=== PATIENT | male | born 2000 | race African-American/Black ===

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

== ENCOUNTER 2018-01-07 16:28 | Emergency (ER) | payer SELFPAY ==
[2018-01-07 16:37] VITALS: BP 141/86
[2018-01-07] MEDS ORDERED: Ondansetron ODT TAB* 4 MG SL ONE (16:51)
--- NOTE | 2018-01-07 17:42 | UC ---
General HPI - HPI Summary HPI Summary: 18 yo BM p/w needing a work note to go back to work. Got scared due to spitting/ vomiting up ASA and ibuprofen(within 5 minutes of ingesting 7-8hrs ago when boss gave him some OTC analgesics due to having some cold sx. Wanted to see if he is ok and not having an acute allergic reaction and would like a work note that he is OK to go back to work. - History of Current Complaint Chief Complaint: UCGI Stated Complaint: VOMITING Time Seen by Provider: 01/07/18 16:52 Hx Obtained From: Patient Hx From Patient Unobtainable Due To: Other Onset/Duration: Sudden Onset Pain Intensity: 0 - Allergy/Home Medications Allergies/Adverse Reactions: Allergies Allergy/AdvReac Type Severity Reaction Status Date / Time aspirin Allergy Swelling Verified 01/07/18 16:37 Of Face,Lips,& Throat ibuprofen Allergy Swelling Verified 01/07/18 16:37 Of Face,Lips,& Throat Home Medications: Home Medications NK [No Home Medications Reported] 01/07/18 [History Confirmed 01/07/18] PMH/Surg Hx/FS Hx/Imm Hx Previously Healthy: Yes - Surgical History Surgical History: None - Family History Known Family History: Positive: Cardiac Disease, Hypertension, Diabetes - Social History Alcohol Use: Rare Substance Use Type: None Smoking Status (MU): Never Smoked Tobacco Household Exposure Type: Cigarettes - Immunization History Most Recent Influenza Vaccination: Not UTD Vaccination Up to Date: Yes Review of Systems Constitutional: Negative Skin: Negative Eyes: Negative ENT: Negative Respiratory: Negative Cardiovascular: Negative Gastrointestinal: Vomiting, Nausea Genitourinary: Negative Motor: Negative Neurovascular: Negative Musculoskeletal: Negative Neurological: Negative Psychological: Negative All Other Systems Reviewed And Are Negative: Yes Physical Exam Triage Information Reviewed: Yes Appearance: Well-Appearing Vital Signs: Initial Vital Signs Temp 36.7 C 01/07/18 16:34 Pulse 56 01/07/18 16:34 Resp 12 01/07/18 16:34 BP 141/86 01/07/18 16:34 Pulse Ox 98 01/07/18 16:34 Eye Exam: Normal ENT Exam: Normal, Other - NO ENT: Positive: Pharynx normal, TMs normal, Uvula midline. Negative: Hoarse voice Dental Exam: Normal Neck exam: Normal Neck: Positive: 1 Respiratory Exam: Normal Cardiovascular Exam: Normal Abdominal Exam: Normal Musculoskeletal Exam: Normal Neurological Exam: Normal Psychological Exam: Normal Skin Exam: Normal Course/Dx - Course Course Of Treatment: Ingested allergic material 7-8 hrs ago but did not give it enough time to absorb into GI system. No evidence of anaphylaxis, urticaria or bronchospasm or acute ilness. May go back to work - Differential Dx - Multi-Symptom Provider Diagnoses: Emesis Discharge - Discharge Plan Condition: Stable Disposition: HOME Patient Education Materials: General Allergic Reaction (ED) Forms: *Work Release Referrals: Emilio Mendoza MD [Primary Care Provider] - Additional Instructions: NO Aspirin, ibuprofen, Advil or Aleve or its derivative medications
== END 2018-01-07 17:40 | disposition home or self-care (01) ==
LOC: UCEAST 16:28
DX: R11.10 Vomiting, unspecified (principal); Z88.6 Allergy status to analgesic agent
CPT/HCPCS: 99211; G0463

== ENCOUNTER 2018-02-23 13:29 | Emergency (ER) | payer SELFPAY ==
[2018-02-23 14:35] VITALS: BP 125/75
[2018-02-23] MEDS ORDERED: Famotidine TAB* 20 MG PO ONE (14:52)
--- NOTE | 2018-02-23 14:52 | UC ---
Abdominal Pain Male HPI - HPI Summary HPI Summary: 18 y/o male with no pmh, no meds, working in dining at [employer], ate jalopeno pepper accidentally at work, + abdominal pain, vomited several minutes later, no shortness of breath, chest pain. mild abdominal pain. no other complaints , no rashes. - History of Current Complaint Chief Complaint: UCGI Stated Complaint: VOMITING Time Seen by Provider: 02/23/18 14:33 Hx Obtained From: Patient Onset/Duration: Sudden Onset, Lasting Hours Severity Initially: Mild Severity Currently: None Pain Intensity: 0 Pain Scale Used: 0-10 Numeric - Allergies/Home Medications Allergies/Adverse Reactions: Allergies Allergy/AdvReac Type Severity Reaction Status Date / Time aspirin Allergy Swelling Verified 02/23/18 14:34 Of Face,Lips,& Throat ibuprofen Allergy Swelling Verified 02/23/18 14:34 Of Face,Lips,& Throat PMH/Surg Hx/FS Hx/Imm Hx Previously Healthy: Yes - Surgical History Surgical History: None - Family History Known Family History: Positive: Cardiac Disease, Hypertension, Diabetes - Social History Alcohol Use: Rare Substance Use Type: None Smoking Status (MU): Smoker, Current Status Unknown Household Exposure Type: Cigarettes - Immunization History Most Recent Influenza Vaccination: Not UTD Vaccination Up to Date: Yes Review of Systems Gastrointestinal: Abdominal Pain - minimal Neurological: Negative Psychological: Negative Is Patient Immunocompromised?: No All Other Systems Reviewed And Are Negative: Yes Physical Exam Triage Information Reviewed: Yes Appearance: Well-Appearing, No Pain Distress, Well-Nourished Vital Signs: Initial Vital Signs Temp 98.1 F 02/23/18 14:32 Pulse 53 02/23/18 14:32 Resp 18 02/23/18 14:32 BP 125/75 02/23/18 14:32 Pulse Ox 99 02/23/18 14:32 Eyes: Positive: Conjunctiva Clear Respiratory: Positive: Chest non-tender, Lungs clear, Normal breath sounds, No respiratory distress, No accessory muscle use Cardiovascular: Positive: RRR, No Murmur Abdomen Description: Positive: Nontender, No Organomegaly, Soft Abd Pain Male Course/Dx - Course Course Of Treatment: increase fluid intake, carafate for stomach irritation, prescription given, return to work tomorrow - Differential Dx/Clinical Impression Provider Diagnoses: gastritis Discharge - Sign-Out/Discharge Documenting (check all that apply): Discharge/Admit/Transfer - Discharge Plan Condition: Good Disposition: HOME Prescriptions: Sucralfate [Carafate] 1 gm PO Q6HR PRN #10 tablet PRN Reason: indigestion, stomach pain Patient Education Materials: Gastritis (ED) Referrals: Emilio Mendoza MD [Primary Care Provider] - Additional Instructions: - Do not eat jalepenos - increase fluid intake - carafe for stomach indigestion - return to ER with shortness of breath, rashes, increased abdominal pain - Billing Disposition and Condition Condition: GOOD Disposition: HOME
== END 2018-02-23 15:05 | disposition home or self-care (01) ==
LOC: UCEAST 13:29
DX: K29.70 Gastritis, unspecified, without bleeding (principal); Z88.6 Allergy status to analgesic agent; Z72.0 Tobacco use
CPT/HCPCS: 99212; A9270-GY; G0463

== ENCOUNTER 2018-02-24 14:25 | Emergency (ER) | payer SELFPAY ==
[2018-02-24 14:36] VITALS: BP 125/65
--- NOTE | 2018-02-24 14:51 | UC ---
Abdominal Pain Male HPI - HPI Summary HPI Summary: 18 yo male requests note for work today Seen yesterday ate habreno pepper yesterday at work immediate burning /nausea and vomiting x 1 drank a lot of milk one episode of diarrhea today (states he is lactose intolerant) no fever minimal pain anorexia tolerating liquids well - History of Current Complaint Chief Complaint: UCGI Stated Complaint: ABDOMINAL PAIN AND DIARRHEA Time Seen by Provider: 02/24/18 14:33 Hx Obtained From: Patient Onset/Duration: Sudden Onset, Lasting Hours Severity Initially: Severe Severity Currently: Mild Pain Intensity: 1 Pain Scale Used: 0-10 Numeric Location: Epigastric Character: Burning, Cramping Aggravating Factor(s): Food Alleviating Factor(s): Rest Associated Signs And Symptoms: Positive: Nausea, Vomiting - once yesterday, Diarrhea - today - Allergies/Home Medications Allergies/Adverse Reactions: Allergies Allergy/AdvReac Type Severity Reaction Status Date / Time aspirin Allergy Swelling Verified 02/23/18 14:34 Of Face,Lips,& Throat ibuprofen Allergy Swelling Verified 02/23/18 14:34 Of Face,Lips,& Throat PMH/Surg Hx/FS Hx/Imm Hx Previously Healthy: Yes - Surgical History Surgical History: None - Family History Known Family History: Positive: Cardiac Disease, Hypertension, Diabetes - Social History Alcohol Use: Rare Substance Use Type: None Smoking Status (MU): Current Some Day Smoker Household Exposure Type: Cigarettes - Immunization History Most Recent Influenza Vaccination: Not UTD Vaccination Up to Date: Yes Review of Systems Gastrointestinal: Abdominal Pain - vague and mild, Vomiting - yesterday x 1, Diarrhea - today x1, Nausea Genitourinary: Negative Motor: Negative Neurovascular: Negative Musculoskeletal: Negative Neurological: Negative Psychological: Negative Is Patient Immunocompromised?: No All Other Systems Reviewed And Are Negative: Yes Physical Exam Triage Information Reviewed: Yes Appearance: Well-Appearing, No Pain Distress, Well-Nourished Vital Signs: Initial Vital Signs Temp 98 F 02/24/18 14:33 Pulse 57 02/24/18 14:33 Resp 15 02/24/18 14:33 BP 125/65 02/24/18 14:33 Pulse Ox 98 02/24/18 14:33 Vital Signs Reviewed: Yes Eyes: Positive: Conjunctiva Clear ENT: Positive: Hearing grossly normal. Negative: Nasal congestion, Nasal drainage, Tonsillar exudate, Trismus, Muffled voice, Hoarse voice Neck: Positive: Supple, Nontender, No Lymphadenopathy Respiratory: Positive: Lungs clear, Normal breath sounds, No respiratory distress Cardiovascular: Positive: RRR, No Murmur Abdomen Description: Positive: Nontender, No Organomegaly, Soft. Negative: CVA Tenderness (R), CVA Tenderness (L) Bowel Sounds: Positive: Present Musculoskeletal: Positive: ROM Intact, No Edema Neurological: Positive: Alert Psychological Exam: Normal Skin Exam: Normal Abd Pain Male Course/Dx - Differential Dx/Clinical Impression Provider Diagnoses: gastritis-resolving Discharge - Sign-Out/Discharge Documenting (check all that apply): Discharge/Admit/Transfer - Discharge Plan Condition: Stable Disposition: HOME Patient Education Materials: Gastritis (ED) Forms: *Work Release Referrals: Emilio Mendoza MD [Primary Care Provider] - If Needed Additional Instructions: recheck for new or worsening symptoms - Billing Disposition and Condition Condition: STABLE Disposition: HOME
== END 2018-02-24 14:52 | disposition home or self-care (01) ==
LOC: UCEAST 14:25
DX: K29.70 Gastritis, unspecified, without bleeding (principal); R11.2 Nausea with vomiting, unspecified; R19.7 Diarrhea, unspecified; Z88.6 Allergy status to analgesic agent; Z72.0 Tobacco use
CPT/HCPCS: 99211; G0463

== ENCOUNTER 2018-03-02 16:05 | Emergency (ER) | payer OTHER ==
[2018-03-02 18:59] VITALS: BP 136/98
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
== END 2018-03-02 19:47 | disposition home or self-care (01) ==
LOC: ED 16:05
DX: S09.90XA Unspecified injury of head, initial encounter (principal); S19.9XXA Unspecified injury of neck, initial encounter; S00.81XA Abrasion of other part of head, initial encounter; Y04.0XXA Assault by unarmed brawl or fight, initial encounter; Y93.9 Activity, unspecified; Y92.9 Unspecified place or not applicable; Z88.6 Allergy status to analgesic agent; Z72.0 Tobacco use
CPT/HCPCS: 70450; 99282

== ENCOUNTER 2018-06-30 08:09 | Emergency (ER) | payer SELFPAY ==
--- NOTE | 2018-06-30 08:29 | ED ---
Lower Extremity - HPI Summary HPI Summary: This pt is a 18 y/o male presenting to [facility] c/o left knee pain since this morning s/p injury yesterday. Pt reports yesterday at around 16:00 he hit his left knee on the edge of a counter table. He states he did not have pain yesterday after injury but this morning he woke up with pain. Pt notes difficulty ambulating secondary to pain. His pain is aggravated with ambulation and bending knee, rating his pain 9/10 in severity. His pain is alleviated with rest. Denies fever, chills, bleeding, any other injuries. Denies any PMHx. - History of Current Complaint Chief Complaint: EDExtremityLower Stated Complaint: LT KNEE PAIN Time Seen by Provider: 06/30/18 08:22 Hx Obtained From: Patient Mechanism Of Injury: Direct Blow Onset of Pain: Days - 1 Onset/Duration: Hours Severity Currently: Moderate Pain Intensity: 8 Pain Scale Used: 0-10 Numeric Timing: Constant Location: Is Discrete @ - left knee Associated Signs And Symptoms: Positive: Bruising, Knee Pain - left. Negative: Swelling, Redness, Fever Aggravating Factor(s): Ambulation, Other - bending knee Alleviating Factor(s): Rest Able to Bear Weight: Yes - but is painful - Allergies/Home Medications Allergies/Adverse Reactions: Allergies Allergy/AdvReac Type Severity Reaction Status Date / Time NSAIDS (Non-Steroidal Allergy Severe Swelling Verified 06/30/18 08:15 Anti-Inflamma Of Face,Lips,& Throat PMH/Surg Hx/FS Hx/Imm Hx Endocrine/Hematology History: Denies: Hx Anticoagulant Therapy, Hx Diabetes Cardiovascular History: Denies: Hx Hypertension Infectious Disease History: No Infectious Disease History: Denies: Traveled Outside the [place] in Last 30 Days - Family History Known Family History: Positive: Cardiac Disease, Hypertension, Diabetes - Social History Alcohol Use: Rare Substance Use Type: Reports: None Smoking Status (MU): Current Some Day Smoker Review of Systems Negative: Fever, Chills Eyes: Negative ENT: Negative Cardiovascular: Negative Musculoskeletal: Other - left knee pain Skin: Negative Neurological: Negative All Other Systems Reviewed And Are Negative: Yes Physical Exam - Summary Physical Exam Summary: VITAL SIGNS: Reviewed. GENERAL: Patient is a well-developed and nourished male who is lying comfortable in the stretcher. Patient is not in any acute respiratory distress. HEAD AND FACE: No signs of trauma. No ecchymosis, hematomas or skull depressions. No sinus tenderness. EYES: PERRLA, EOMI x 2, No injected conjunctiva, no nystagmus. EARS: Hearing grossly intact. Ear canals and tympanic membranes are within normal limits. MOUTH: Oropharynx within normal limits. NECK: Supple, trachea is midline, no adenopathy, no JVD, no carotid bruit, no c- spine tenderness, neck with full ROM. CHEST: Symmetric, no tenderness at palpation LUNGS: Clear to auscultation bilaterally. No wheezing or crackles. CVS: Regular rate and rhythm, S1 and S2 present, no murmurs or gallops appreciated. ABDOMEN: Soft, non-tender. No signs of distention. No rebound no guarding, and no masses palpated. Bowel sounds are normal. EXTREMITIES: LLE: small ecchymosis on the left knee which is tender to palpation. He has full ROM of the left knee. Drawer test is negative. No swelling. No hematoma. No deformity. NEURO: Alert and oriented x 3. No acute neurological deficits. Speech is normal and follows commands. SKIN: Dry and warm Triage Information Reviewed: Yes Vital Signs On Initial Exam: Initial Vitals Temp Pulse Resp BP Pulse Ox 97.9 F 54 16 133/91 98 06/30/18 08:10 06/30/18 08:10 06/30/18 08:10 06/30/18 08:10 06/30/18 08:10 Vital Signs Reviewed: Yes Diagnostics - Vital Signs Vital Signs Temp Pulse Resp BP Pulse Ox 06/30/18 08:10 97.9 F 54 16 133/91 98 - Laboratory Lab Statement: Any lab studies that have been ordered have been reviewed, and results considered in the medical decision making process. - Radiology Left knee XR Xray Interpretation: No Acute Changes - IMPRESSION: No acute osseous injury. If symptoms persist, recommend repeat imaging. Dr. Vazquez has reviewed this radiology report. Radiology Interpretation Completed By: Radiologist Left lower extremity XR Xray Interpretation: No Acute Changes - IMPRESSION: No acute osseous injury. If symptoms persist, recommend repeat imaging. Dr. Vazquez has reviewed this radiology report. Radiology Interpretation Completed By: Radiologist Re-Evaluation - Re-Evaluation First Eval Re-Evaluation Time: 10:01 Comment: I reviewed XR results with the pt. Lower Extremity Course/Dx - Course Assessment/Plan: This patient is a 18-year-old male who presents to the emergency department with a chief complaint of left knee pain. X-ray of the knee shows no fracture dislocation. The patient is able to ambulate out of the emergency room without any significant discomfort. The patient was recommended to return to the emergency department if he develops any increase in pain or was unable to ambulate. The patient understands and agrees. Patient will take ibuprofen for the pain. - Diagnoses Differential Diagnosis/HQI/PQRI: Positive: Bursitis, Fracture (Closed), Sprain, Strain, Tendonitis Provider Diagnoses: Knee pain Discharge - Sign-Out/Discharge Documenting (check all that apply): Patient Departure - Discharge - Discharge Plan Condition: Stable Disposition: HOME Patient Education Materials: Knee Pain (ED) Forms: *Work Release Referrals: Emilio Mendoza MD [Primary Care Provider] - Additional Instructions: FOLLOW UP WITH YOUR PRIMARY CARE PROVIDER WITHIN ONE WEEK FOR HIGH BLOOD PRESSURE NOTED TODAY. RETURN TO THE ED FOR ANY NEW OR WORSENING SYMPTOMS. - Billing Disposition and Condition Condition: STABLE Disposition: Home - Attestation Statements Document Initiated by Sivanibe: Yes Documenting Scribe: Shi Callejas Provider For Whom Johnson is Documenting (Include Credential): Sandoval Vazquez MD Scribe Attestation: Shi Erwin, scribed for Sandoval Vazquez MD on 07/01/18 at 0808. Scribe Documentation Reviewed: Yes Provider Attestation: The documentation as recorded by the Shi joy accurately reflects the service I personally performed and the decisions made by me, Sandoval Vazquez MD
--- NOTE | 2018-06-30 09:47 | RAD ---
HISTORY: L knee pain COMPARISONS: None VIEWS: 8 , Frontal, lateral, axial, and oblique views of the left knee with frontal and lateral views of the left foreleg FINDINGS: BONE DENSITY: Normal. BONES: There is no displaced fracture. JOINTS: There is no arthropathy. There is no suprapatellar joint effusion or lipohemarthrosis. ALIGNMENT: There is no dislocation. SOFT TISSUES: Unremarkable. OTHER FINDINGS: None. IMPRESSION: NO ACUTE OSSEOUS INJURY. IF SYMPTOMS PERSIST, RECOMMEND REPEAT IMAGING.
[2018-06-30 10:18] VITALS: BP 127/67
== END 2018-06-30 10:17 | disposition home or self-care (01) ==
LOC: ED 08:09
DX: S80.02XA Contusion of left knee, initial encounter (principal); M25.562 Pain in left knee; Z72.0 Tobacco use; W22.8XXA Striking against or struck by other objects, initial encounter; Y92.9 Unspecified place or not applicable
CPT/HCPCS: 99281

== ENCOUNTER 2018-11-24 16:56 | Emergency (ER) | payer OTHER ==
[2018-11-24] MEDS ORDERED: Cyclobenzaprine TAB* 10 MG PO ONE (18:24)
--- NOTE | 2018-11-24 18:49 | ED ---
Back Pain - HPI Summary HPI Summary: 18-year-old male presents with back pain since yesterday. He states he slipped on ice yesterday and fell onto lower back. He denies any numbness or tingling. No urinary symptoms. No fevers. No loss of bowel or bladder. No saddle anesthesia. Is able to walk with normal gait. States pain is greatest when attempts to lift objects. He works as a [employer]. He denies any other injury. No head injury or loss consciousnesses. He has has not taking anything for her symptoms. He is allergic to NSAIDs. Has no medical conditions. Pain does not go down his leg. Has no history of back pain. - History of Current Complaint Chief Complaint: EDBackInjuryPain Stated Complaint: FALL/LOWER BACK PAIN Time Seen by Provider: 11/24/18 17:40 Pain Intensity: 3 - Allergies/Home Medications Allergies/Adverse Reactions: Allergies Allergy/AdvReac Type Severity Reaction Status Date / Time NSAIDS (Non-Steroidal Allergy Severe Swelling Verified 11/24/18 17:01 Anti-Inflamma Of Face,Lips,& Throat aspirin Allergy Swelling Verified 11/24/18 17:01 Of Face,Lips,& Throat ibuprofen Allergy Swelling Verified 11/24/18 17:01 Of Face,Lips,& Throat PMH/Surg Hx/FS Hx/Imm Hx Endocrine/Hematology History: Denies: Hx Anticoagulant Therapy, Hx Diabetes Cardiovascular History: Denies: Hx Hypertension - Immunization History Date of Tetanus Vaccine: unknown Infectious Disease History: No Infectious Disease History: Denies: Traveled Outside the [place] in Last 30 Days - Family History Known Family History: Positive: Cardiac Disease, Hypertension, Diabetes - Social History Alcohol Use: Rare Substance Use Type: Reports: None Smoking Status (MU): Current Some Day Smoker Review of Systems Negative: Fever Negative: Chest Pain Negative: Shortness Of Breath Positive: Myalgia - back pain All Other Systems Reviewed And Are Negative: Yes Physical Exam Triage Information Reviewed: Yes Vital Signs On Initial Exam: Initial Vitals Temp Pulse Resp BP Pulse Ox 96.9 F 68 19 140/67 96 11/24/18 16:59 11/24/18 16:59 11/24/18 16:59 11/24/18 16:59 11/24/18 16:59 Vital Signs Reviewed: Yes Appearance: Positive: Well-Appearing Skin: Positive: Warm, Dry Head/Face: Positive: Normal Head/Face Inspection Eyes: Positive: Normal, Conjunctiva Clear ENT: Positive: Pharynx normal Respiratory/Lung Sounds: Positive: Clear to Auscultation, Breath Sounds Present Cardiovascular: Positive: Normal, RRR Abdomen Description: Positive: Nontender, Soft Bowel Sounds: Positive: Present Musculoskeletal: Positive: Normal, Other - tenderness lower back, neg SLR, good pulses. sensation grossly intact Neurological: Positive: Normal, Reflexes Intact, Normal Gait Psychiatric: Positive: Normal Diagnostics - Vital Signs Vital Signs Temp Pulse Resp BP Pulse Ox 11/24/18 16:59 96.9 F 68 19 140/67 96 - Laboratory Lab Statement: Any lab studies that have been ordered have been reviewed, and results considered in the medical decision making process. - Radiology back Radiology Interpretation Completed By: ED Physician Summary of Radiographic Findings: no fracture Re-Evaluation - Re-Evaluation First Eval Re-Evaluation Time: 19:18 Change: Improved Comment: feeling better Back Pain Course/Dx - Course Course Of Treatment: 18-year-old male presents with back pain since yesterday. He states he slipped on ice yesterday and fell onto lower back. He denies any numbness or tingling. No urinary symptoms. No fevers. No loss of bowel or bladder. No saddle anesthesia. Is able to walk with normal gait. States pain is greatest when attempts to lift objects. He works as a [employer]. He denies any other injury. No head injury or loss consciousnesses. He has has not taking anything for her symptoms. He is allergic to NSAIDs. Has no medical conditions. Pain does not go down his leg. Has no history of back pain. On exam has tenderness lower back. Neurovascularly intact. Negative straight leg raise. X-ray read by me as normal. Gave lidocaine and flexeril feeling a little bit better. Will prescribe medrol and Flexeril for home. Told to follow up primary. Patient understands and agrees plan. - Diagnoses Differential Diagnosis/HQI/PQRI: Positive: Fracture, Herniated Disc, Strain, Sprain Provider Diagnoses: Back pain Discharge - Sign-Out/Discharge Documenting (check all that apply): Patient Departure Patient Received Moderate/Deep Sedation with Procedure: No - Discharge Plan Condition: Good Disposition: HOME Prescriptions: Cyclobenzaprine TAB* [Flexeril 10 MG TAB*] 10 mg PO TID PRN #21 tab PRN Reason: Pain methylPREDNISolone [Medrol Dosepak 4 MG*] 4 mg PO .SEE VALERIE INSTRUCTION #1 packet Patient Education Materials: Back Pain (ED) Forms: *Work Release Referrals: Emilio Mendoza MD [Primary Care Provider] - Additional Instructions: Follow directions on package for Medrol pack Take muscle relaxers three times a day Use Tylenol for pain every 6 hours ice/heat area, move as much as possible Follow up with primary within 5 days Return to ED if develop any new or worsening symptoms - Billing Disposition and Condition Condition: GOOD Disposition: Home
[2018-11-24] MEDS ORDERED: Lidocaine PATCH 5%* 1 PATCH TRANSDERM SCH (19:00)
[2018-11-24 19:36] VITALS: BP 137/54
[2018-11-25] MEDS ORDERED: Lidocaine Patch REMOVE* 1 NOTE MISC PATCH OFF SCH (21:00)
== END 2018-11-24 19:36 | disposition home or self-care (01) ==
LOC: ED 16:56
DX: M54.9 Dorsalgia, unspecified (principal); W00.0XXA Fall on same level due to ice and snow, initial encounter; Y92.9 Unspecified place or not applicable; F17.200 Nicotine dependence, unspecified, uncomplicated
CPT/HCPCS: 72110; 99282; A9270-GY

== ENCOUNTER 2019-02-22 18:21 | Emergency (ER) | payer OTHER ==
[2019-02-22 18:58] LABS: Influenza A Molecular NEGATIVE (Negative); Influenza B Molecular NEGATIVE (Negative)
--- NOTE | 2019-02-22 22:15 | ED ---
Influenza-Like Illness - HPI Summary HPI Summary: A 19 y/o male presents to [facility] with a chief complaint of flu like symptoms for the past three days. He reports body aches, fevers, chills, sore throat, headache, neck pain, nausea, and loss of balance. Temperature at triage was 100.5. He denies CP, SOB, cough, abdominal pain or vomiting. He denies his friends or family being sick. He claims that he has been taking two Tylenol every 4-5 hours. He has not tried Motrin. - History of Current Complaint Chief Complaint: EDFluSymptoms Time Seen by Provider: 02/22/19 22:04 Hx Obtained From: Patient Onset/Duration: Sudden Onset, Lasting Days, Still Present Severity: Severe Associated Signs & Symptoms: Fever, Myalgia, Sore Throat, Headache - Allergy/Home Medications Allergies/Adverse Reactions: Allergies Allergy/AdvReac Type Severity Reaction Status Date / Time NSAIDS (Non-Steroidal Allergy Severe Swelling Verified 02/22/19 18:32 Anti-Inflamma Of Face,Lips,& Throat aspirin Allergy Swelling Verified 02/22/19 18:32 Of Face,Lips,& Throat ibuprofen Allergy Swelling Verified 02/22/19 18:32 Of Face,Lips,& Throat PMH/Surg Hx/FS Hx/Imm Hx Endocrine/Hematology History: Denies: Hx Anticoagulant Therapy, Hx Diabetes Cardiovascular History: Denies: Hx Hypertension - Immunization History Date of Tetanus Vaccine: unknown Infectious Disease History: No Infectious Disease History: Denies: Traveled Outside the [place] in Last 30 Days - Family History Known Family History: Positive: Cardiac Disease, Hypertension, Diabetes - Social History Alcohol Use: Rare Substance Use Type: Reports: None Smoking Status (MU): Current Some Day Smoker Review of Systems Positive: Fever - 100.5 at triage Positive: Sore Throat Negative: Chest Pain Negative: Shortness Of Breath, Cough Positive: Nausea. Negative: Abdominal Pain, Vomiting Positive: Other - positive: body aches Neurological: Other - positive: dizziness, loss of balance All Other Systems Reviewed And Are Negative: Yes Physical Exam - Summary Physical Exam Summary: Appearance: Well-appearing, Well-nourished, lying in bed comfortably Skin: Warm, dry, no obvious rash Eyes: sclera anicteric, no conjunctival pallor ENT: mucous membranes moist, Pharynx moderately erythematous but no purulence Neck: Supple, nontender Respiratory: Clear to auscultation, no signs of respiratory distress Cardiovascular: Normal S1, S2. No murmurs. Normal distal pulses in tibial and radial bilaterally. Abdomen: Soft, nontender, normal active bowel sounds present Musculoskeletal: Normal, Strength/ROM Intact Neurological: A&Ox3, awake and alert, mentation is normal, speech is fluent and appropriate Psychiatric: affect is normal, does not appear anxious or depressed Triage Information Reviewed: Yes Vital Signs On Initial Exam: Initial Vitals Temp Pulse Resp BP Pulse Ox 100.5 F 85 18 134/86 95 02/22/19 18:29 02/22/19 18:29 02/22/19 18:29 02/22/19 18:29 02/22/19 18:29 Vital Signs Reviewed: Yes Diagnostics - Vital Signs Vital Signs Temp Pulse Resp BP Pulse Ox 02/22/19 21:40 101.6 F 84 16 129/83 02/22/19 18:29 100.5 F 85 18 134/86 95 - Laboratory Lab Results: Lab Results 02/22/19 Range/Units 16:40 Influenza A (Rapid) Negative (Negative) Influenza B (Rapid) Negative (Negative) Result Diagrams: 02/22/19 22:28 02/22/19 22:28 Lab Statement: Any lab studies that have been ordered have been reviewed, and results considered in the medical decision making process. Flu Symptom Course/Dx - Course Course Of Treatment: A 19 y/o male presents to [facility] with a chief complaint of flu like symptoms for the past three days. He reports body aches, fevers, chills , sore throat, headache, neck pain, nausea, and loss of balance. Temperature at triage was 100.5. He denies CP, SOB, cough, abdominal pain or vomiting. The physical exam revealed pharynx moderately erythematous but no purulence. In the ED course the patient was given Tylenol PO. The patient tested negative for influenza A and influenza B. Bloodwork and chemistries obtained. Monoscreen negative, group A strep negative. The patient will be discharged and follow up with [facility]. He is agreeable with this plan. - Diagnoses Provider Diagnoses: Infectious mononucleosis Discharge - Sign-Out/Discharge Documenting (check all that apply): Patient Departure - DC Patient Received Moderate/Deep Sedation with Procedure: No - Discharge Plan Condition: Good Disposition: HOME Patient Education Materials: Mononucleosis (ED) Forms: *Work Release Referrals: [facility] [Outside] Additional Instructions: I suspect you are coming down with infectious mononucleosis. There is no specific treatment for this, just supportive care and trying to stay hydrated. - Attestation Statements Document Initiated by Scribe: Yes Documenting Scribe: Omar Abraham Provider For Whom Scribe is Documenting (Include Credential): Lloyd Deluna MD Scribe Attestation: I, Omar Abraham, scribed for Lloyd Deluna MD on 02/22/19 at 0704. Status of Scribe Document: Ready
[2019-02-22] MEDS ORDERED: Acetaminophen TAB* 325 MG PO ONE (22:25)
[2019-02-22 22:37] LABS: Rapid Strep Molecular Negative (Negative)
[2019-02-22 22:40] LABS: Hematocrit 46 % (36-46); Hemoglobin 15.9 g/dL (14.0-18.0); Mean Corpuscular HGB Conc 34 g/dL (31-36); Mean Corpuscular Hemoglobin 31 pg (27-31); Mean Corpuscular Volume 91 fL (80-94); Mean Platelet Volume 7.7 fL (7.4-10.4); Platelet Count 154 10^3/uL (150-450); Red Blood Count 5.07 10^6 /uL (4.18-5.48); Red Cell Distribution Width 13 % (10.5-15); White Blood Count 12.9 10^3/uL (3.5-10.8)
[2019-02-22 22:57] LABS: Albumin 4.6 g/dL (3.2-5.2); Albumin/Globulin Ratio 1.3 (1-3); BUN/Creatinine Ratio 9.2 (8-20); Calcium 9.8 mg/dL (8.6-10.3); EGFR African American 92.5 (>60); EGFR Non-African American 76.4 (>60); Globulin 3.5 g/dL (2-4); Potassium 4.2 mmol/L (3.5-5.0); Total Bilirubin 0.6 mg/dL (0.2-1.0); Total Protein 8.1 g/dL (6.4-8.9)
[2019-02-22 23:19] LABS: ABS Basophils 0 10^3/ul (0-0.2); ABS Eosinophils 0 10^3/ul (0-0.6); ABS Monocytes 1.7 10^3/ul (0-0.8); ABS Neutrophils 9.1 10^3/ul (1.5-7.7); ABS Nucleated RBC 0 10^3/ul; Eosinophil % 0.1 %; Lymphocyte % 15.7 %; Nucleated Red Blood Cells % 0
[2019-02-22 23:31] VITALS: BP 144/91
== END 2019-02-22 22:40 | disposition home or self-care (01) ==
LOC: ED 18:21
DX: B27.90 Infectious mononucleosis, unspecified without complication (principal); Z88.6 Allergy status to analgesic agent; Z72.0 Tobacco use
CPT/HCPCS: 36415; 80053; 85025; 86308; 87651; 99283; A9270-GY

== ENCOUNTER 2019-02-25 20:24 | Emergency (ER) | payer OTHER ==
[2019-02-25 20:34] VITALS: BP 150/58
--- NOTE | 2019-02-25 20:55 | UC ---
Throat Pain/Nasal Billy HPI - HPI Summary HPI Summary: 19 yo male with onset of illness on 02/20 sore throat/swollen glands and diarrhea had blood work and RS in ER here requesting work not states he is much improved missed work today due to malaise - History of Current Complaint Chief Complaint: UCRespiratory Stated Complaint: SORE THROAT, AND DIARRHEA Time Seen by Provider: 02/25/19 20:44 Hx Obtained From: Patient Onset/Duration: Gradual Onset, Lasting Days Severity: Mild Pain Intensity: 4 Pain Scale Used: 0-10 Numeric Cough: None Associated Signs & Symptoms: Positive: Fever - at onset - Epiglottits Risk Factors Epiglottis Risk Factors: Negative - Allergies/Home Medications Allergies/Adverse Reactions: Allergies Allergy/AdvReac Type Severity Reaction Status Date / Time NSAIDS (Non-Steroidal Allergy Severe Swelling Verified 02/25/19 20:34 Anti-Inflamma Of Face,Lips,& Throat aspirin Allergy Swelling Verified 02/25/19 20:34 Of Face,Lips,& Throat ibuprofen Allergy Swelling Verified 02/25/19 20:34 Of Face,Lips,& Throat Home Medications: Home Medications Acetaminophen [Pain Relief Extra Strength] 1,000 mg PO PRN 02/25/19 [History] PMH/Surg Hx/FS Hx/Imm Hx Previously Healthy: Yes Other History Of: Negative For: Anticoagulant Therapy - Surgical History Surgical History: None - Family History Known Family History: Positive: Cardiac Disease, Hypertension, Diabetes - Social History Alcohol Use: None Substance Use Type: None Smoking Status (MU): Former Smoker Household Exposure Type: Cigarettes - Immunization History Most Recent Influenza Vaccination: Not UTD Vaccination Up to Date: Yes Review of Systems All Other Systems Reviewed And Are Negative: Yes Constitutional: Positive: Fatigue Skin: Positive: Negative Eyes: Positive: Negative ENT: Positive: Sore Throat - markedly improved Respiratory: Positive: Negative Cardiovascular: Positive: Negative Gastrointestinal: Positive: Diarrhea - 1 x day Genitourinary: Positive: Negative Motor: Positive: Negative Neurovascular: Positive: Negative Musculoskeletal: Positive: Negative Neurological: Positive: Negative Psychological: Positive: Negative Physical Exam Triage Information Reviewed: Yes Appearance: Well-Appearing, No Pain Distress, Well-Nourished Vital Signs: Initial Vital Signs Temp 97.6 F 02/25/19 20:30 Pulse 67 02/25/19 20:30 Resp 16 05/03/19 20:30 BP 150/58 02/25/19 20:30 Pulse Ox 97 02/25/19 20:30 Vital Signs Reviewed: Yes Eyes: Positive: Conjunctiva Clear ENT: Positive: Hearing grossly normal. Negative: Nasal congestion, Nasal drainage, Tonsillar swelling, Tonsillar exudate, Sinus tenderness, Uvula midline Dental Exam: Normal Neck: Positive: Supple, Nontender, No Lymphadenopathy Respiratory: Positive: Lungs clear, Normal breath sounds, No respiratory distress, No accessory muscle use Cardiovascular: Positive: RRR, No Murmur Abdomen Description: Positive: Nontender, No Organomegaly Bowel Sounds: Positive: Present Musculoskeletal: Positive: ROM Intact, No Edema Neurological: Positive: Alert Psychological Exam: Normal Skin Exam: Normal Throat Pain/Nasal Course/Dx - Course Course Of Treatment: strep (-) - Differential Dx/Diagnosis Provider Diagnosis: Viral syndrome Discharge - Sign-Out/Discharge Documenting (check all that apply): Patient Departure All imaging exams completed and their final reports reviewed: No Studies - Discharge Plan Condition: Stable Disposition: HOME Patient Education Materials: Viral Syndrome (ED) Forms: *Work Release Referrals: Karin Bateman MD [Primary Care Provider] - 3 Days (if not better) - Billing Disposition and Condition Condition: STABLE Disposition: Home
== END 2019-02-25 21:12 | disposition home or self-care (01) ==
LOC: UCEAST 20:24
DX: B34.9 Viral infection, unspecified (principal); Z87.891 Personal history of nicotine dependence; Z88.8 Allergy status to other drugs, medicaments and biological substances
CPT/HCPCS: 87651; 99211; G0463